=== PATIENT | male | born 1995 | race Caucasian/White ===

== ENCOUNTER 2020-05-27 17:46 | Emergency (ER) | payer OTHER ==
[~2020-05-27] VITALS: Ht 177.8 cm; Wt 97.7 kg
[2020-05-27 18:28] VITALS: BP 150/94
--- NOTE | 2020-05-27 19:24 | NUR ---
PT FAILED PO CHALLENGE
[2020-05-27] MEDS ORDERED: metoclopramide 5 mg/ml inj IV ONE (19:45)
[2020-05-27] MEDS ORDERED: LORazepam 2 mg/ml vial IV ONE (19:45)
[2020-05-27] MEDS ORDERED: normal saline 1000ML IV soln IVB ONE (19:45)
[2020-05-27] MEDS ORDERED: famotidine/PF 10 mg/ml inj IV ONE (19:45)
[2020-05-27] MEDS ORDERED: glucagon, human recombinant 1mg kit IV ONE (19:45)
[2020-05-27 20:01] LABS: BASOPHILS % (AUTO) 0.5 % (0-1); EOSINOPHILS # (AUTO) 0.1 X10'3 (0-0.9); EOSINOPHILS % (AUTO) 1.2 % (0-6); HEMATOCRIT 47.4 % (42.0-52.0); HEMOGLOBIN 16.4 g/dl (14.0-17.9); LYMPHOCYTES % (AUTO) 13.1 % (21-51); MEAN CORPUSCULAR HEMOGLOBIN 30.2 PG (27.0-31.0); MEAN CORPUSCULAR HGB CONC 34.6 g/dL (33.0-36.5); MEAN CORPUSCULAR VOLUME 87.4 FL (78-98); MEAN PLATELET VOLUME 8.9 FL (7.4-10.4); MONOCYTES # (AUTO) 0.5 X10'3 (0-0.9); MONOCYTES % (AUTO) 6.3 % (2-12); NEUTROPHILS # (AUTO) 6.1 X10'3 (1.8-7.7); NEUTROPHILS % (AUTO) 78.9 % (42-75); PLATELET COUNT 231 X10'3 (140-440); RED BLOOD COUNT 5.42 X10'6 (4.70-6.10); RED CELL DISTRIBUTION WIDTH 12.6 % (11.5-14.5); WHITE BLOOD COUNT 7.7 X10'3 (4.5-11.0)
[2020-05-27 20:16] LABS: ALANINE AMINOTRANSFERASE 41 U/L (12-78); ALBUMIN 5.1 G/DL (3.4-5.0); ALBUMIN/GLOBULIN RATIO 1.5 (1.1-1.5); ALKALINE PHOSPHATASE 45 IU/L (46-116); ANION GAP 10 (8-16); ASPARTATE AMINO TRANSFERASE 35 U/L (10-37); BILIRUBIN,TOTAL 1.7 MG/DL (0.1-1.0); BLOOD UREA NITROGEN 16 MG/DL (7-18); BUN/CREATININE RATIO 14.5 (5.4-32.0); CALCIUM 9.3 MG/DL (8.5-10.1); CHLORIDE 105 MMOL/L (99-107); GLUCOSE 85 MG/DL (70-104); POTASSIUM 3.9 MMOL/L (3.5-5.1); SODIUM 141 MMOL/L (135-145); TOTAL CARBON DIOXIDE 26.5 MMOL/L (24-32); TOTAL PROTEIN 8.4 G/DL (6.4-8.2); eGFR 81 ML/MIN
[2020-05-27] MEDS ORDERED: ONDA4TAB6 PO (20:23)
[2020-05-27] MEDS ORDERED: PANT-47 PO (20:23)
== END 2020-05-27 20:37 | disposition home or self-care (01) ==
LOC: ER 17:47
DX: T18.128A Food in esophagus causing other injury, initial encounter (principal); Z72.89 Other problems related to lifestyle; Z79.899 Other long term (current) drug therapy; X58.XXXA Exposure to other specified factors, initial encounter; Y93.89 Activity, other specified; Y92.89 Other specified places as the place of occurrence of the external cause; Y99.8 Other external cause status
CPT/HCPCS: 36415; 71045; 80053; 85025; 96361; 96374; 96375; 99284; J1610; J2765; J3490; J7030